=== PATIENT | male | born 1940 | race Caucasian/White ===

== ENCOUNTER 2021-11-08 05:54 | Day surgery (SDC) | payer MEDICARE, OTHER ==
[2021-11-06 10:40] LABS: BASOPHILS % (AUTO) 0.4 % (0-1); EOSINOPHILS # (AUTO) 0.2 X10'3 (0-0.9); EOSINOPHILS % (AUTO) 2.4 % (0-6); LYMPHOCYTES # (AUTO) 2.4 X10'3 (1.1-4.8); LYMPHOCYTES % (AUTO) 26.5 % (21-51); MEAN CORPUSCULAR HEMOGLOBIN 30.2 PG (27.0-31.0); MEAN CORPUSCULAR HGB CONC 33.9 g/dL (33.0-36.5); MEAN CORPUSCULAR VOLUME 89.3 FL (78-98); MEAN PLATELET VOLUME 7.6 FL (7.4-10.4); MONOCYTES # (AUTO) 0.8 X10'3 (0-0.9); MONOCYTES % (AUTO) 8.8 % (2-12); NEUTROPHILS # (AUTO) 5.5 X10'3 (1.8-7.7); NEUTROPHILS % (AUTO) 61.9 % (42-75); PRE OP HEMATOCRIT 45.9 % (42.0-52.0); PRE OP HEMOGLOBIN 15.6 g/dL (14.0-17.9); PRE OP PLATELET COUNT 241 X10'3 (140-440); RED BLOOD COUNT 5.15 X10'6 (4.70-6.10); RED CELL DISTRIBUTION WIDTH 13.7 % (11.5-14.5)
[2021-11-06 10:57] LABS: ALBUMIN/GLOBULIN RATIO 1.3 (1.1-1.5); ALKALINE PHOSPHATASE 87 IU/L (46-116); BLOOD UREA NITROGEN 32 MG/DL (7-18); BUN/CREATININE RATIO 34.4 (5.4-32.0); CALCIUM 8.5 MG/DL (8.5-10.1); CHLORIDE 106 MMOL/L (99-107); CREATININE 0.93 MG/DL (0.60-1.10); PRE OP ALT 24 U/L (30-65); PRE OP ANION GAP 9 (8-16); PRE OP AST 15 U/L (10-37); PRE OP BILIRUB, TOTAL 0.8 MG/DL (0.0-1.0); PRE OP GLUCOSE 96 MG/DL (70-104); PRE OP POTASSIUM 4.6 MMOL/L (3.4-5.1); PRE OP SODIUM 141 MMOL/L (135-145); TOTAL CARBON DIOXIDE 26.2 MMOL/L (24-32); TOTAL PROTEIN 7.2 G/DL (6.4-8.2); eGFR 78 ML/MIN
[~2021-11-08] VITALS: Ht 165.1 cm; Wt 78.7 kg
[~2021-11-08 05:54] MED LIST: ATOR20TA PO; METO-539 PO; NAPR-56 PO; ZES10T PO; cefazolin/dext.iso 2gm/50ml IV ONE; famotidine 20mg tablet PO ONE; ringers solution, lacted 1,000 ML IV SCH
[2021-11-08] MEDS ORDERED: BUPIVAcaine 0.5% inj/PF 30 ML ONE (06:27)
[2021-11-08 07:15] VITALS: BP 157/50
[2021-11-08] MEDS ORDERED: LIDOcaine 0.5% (5mg/ml) 50ml vial ONE (07:22)
[2021-11-08] MEDS ORDERED: LIDOcaine 1% 30ml preserv. free vial ONE (07:25)
[2021-11-08] MEDS ORDERED: midazolam 1 mg/ML 2ml injection ONE (07:52)
[2021-11-08] MEDS ORDERED: FENTANYL CITRATE/PF 50 MCG/1 ML VIAL ONE ×2 (07:52→08:30)
[2021-11-08] MEDS ORDERED: hydrALAZINE 20mg/ml inj. IV ONE (08:41)
[2021-11-08] MEDS ORDERED: ketorolac trometh. 30mg/ml inj. ONE (08:41)
[2021-11-08] MEDS ORDERED: propofol inj 20 ML IV ONE (08:42)
[2021-11-08 08:44] VITALS: BP 120/63
--- NOTE | 2021-11-08 08:44 | NUR ---
Received from OR via , accompanied by Anesthesiologist DR DALEY and report given by Anesthesiolgist. AWAKENS TO VOICE. VITALS STABLE. DRESSING DI. NALLELY PAIN. FINGERS WARM AND PINK.
[2021-11-08 08:54] VITALS: BP 124/69
[2021-11-08 09:04] VITALS: BP 140/62
[2021-11-08 09:14] VITALS: BP 122/59
--- NOTE | 2021-11-08 09:34 | NUR ---
AWAKE AND ORIENTED. VITALS STABLE. DRESSING DI. NALLELY PAIN. HOME WITH HIS SON AT THIS TIME.
== END 2021-11-08 09:34 | disposition home or self-care (01) ==
LOC: PAS 05:54
PROVIDERS: ATTEND Orthopaedic Surgery Hand Surgery
DX: M72.0 Palmar fascial fibromatosis [Dupuytren] (principal); G56.01 Carpal tunnel syndrome, right upper limb; I25.10 Atherosclerotic heart disease of native coronary artery without angina pectoris; I10 Essential (primary) hypertension; Z20.822 Contact with and (suspected) exposure to COVID-19; Z79.899 Other long term (current) drug therapy; Z72.89 Other problems related to lifestyle; Z95.1 Presence of aortocoronary bypass graft; Z90.49 Acquired absence of other specified parts of digestive tract
CPT/HCPCS: 26040; 36415; 64721; 71046; 80053; 82948; 85025; 87635; 93005; C9803; J0360; J1885; J2250; J2704; J3010; J3490; J7030; J7120; S0020; Z7506; Z7512; A4215; A6449

== ENCOUNTER 2022-06-17 13:01 | Day surgery (SDC) | payer MEDICARE, OTHER ==
[2022-06-16 09:47] LABS: APTT 27 SECONDS (22-32)
[2022-06-16 10:05] LABS: ANION GAP 7 (8-16); BLOOD UREA NITROGEN 25 MG/DL (7-18); BUN/CREATININE RATIO 21.2 (5.4-32.0); CHLORIDE 103 MMOL/L (99-107); CHOLESTEROL 190 MG/DL (0-200); CREATININE 1.18 MG/DL (0.60-1.10); GLUCOSE 140 MG/DL (70-104); HDL CHOLESTEROL 48 MG/DL (35-60); LDL CHOLESTEROL 111 MG/DL (50-100); POTASSIUM 4.6 MMOL/L (3.5-5.1); SODIUM 138 MMOL/L (135-145); TOTAL CARBON DIOXIDE 27.7 MMOL/L (24-32); TRIGLYCERIDES 179 MG/DL (20-135); eGFR 59 ML/MIN
[~2022-06-17] VITALS: Ht 167.6 cm; Wt 76.7 kg
[2022-06-17] VITALS (10 sets, daily range): BP systolic 132–197; BP diastolic 70–95
[~2022-06-17 13:01] MED LIST changes: -cefazolin/dext.iso 2gm/50ml IV ONE; -famotidine 20mg tablet PO ONE; -ringers solution, lacted 1,000 ML IV SCH
[2022-06-17] MEDS ORDERED: LORazepam 0.5 MG tablet PO PRN (13:45)
[2022-06-17] MEDS ORDERED: normal saline 1,000 ML IV SCH (13:45)
[2022-06-17] MEDS ORDERED: diphenhydrAMINE 25mg capsule PO PRN (13:45)
[2022-06-17] MEDS ORDERED: ASPI-107 PO (14:12)
[2022-06-17] MEDS ORDERED: iohexol 350MG/ML 100ml bottle IV ONE (16:09)
[2022-06-17] MEDS ORDERED: LIDOcaine 1% 30ml preserv. free vial ONE (16:09)
[2022-06-17] MEDS ORDERED: fentaNYL/PF 50MCG/1 ML 2ML syringe ONE (16:09)
[2022-06-17] MEDS ORDERED: midazolam 1 mg/ML 2ml injection ONE ×2 (16:09→16:58)
[2022-06-17] MEDS ORDERED: heparin 1,000unit/ml 10ml vial 10 ML ONE (16:58)
[2022-06-17] MEDS ORDERED: clopidogrel 300mg tablet ONE (16:58)
[2022-06-17] MEDS ORDERED: aspirin 325mg tablet ONE (17:04)
--- NOTE | 2022-06-17 17:52 | NUR ---
Bedside report received from RODNEY Watts s/p left heart cath with PCI. Vital signs stable. NSR on monitor. Patient denies chest pain. Right groin site stable with dressing CDI.
== END 2022-06-17 21:30 | disposition home or self-care (01) ==
LOC: SSTAY O 13:01
PROVIDERS: ATTEND Student in an Organized Health Care Education/Training Program
DX: R94.39 Abnormal result of other cardiovascular function study (principal); I25.10 Atherosclerotic heart disease of native coronary artery without angina pectoris; I25.810 Atherosclerosis of coronary artery bypass graft(s) without angina pectoris; I10 Essential (primary) hypertension; E78.5 Hyperlipidemia, unspecified; I25.82 Chronic total occlusion of coronary artery; Z79.01 Long term (current) use of anticoagulants; Z79.899 Other long term (current) drug therapy; Z79.82 Long term (current) use of aspirin
CPT/HCPCS: 36415; 80048; 80061; 85610; 85730; 93005; 93459; 99152; 99153; C1725; C1751; C1760; C1769; C1874; C1894; C9604; J1644; J2250; J3010; J3490; J7030; Q0163; Q9967; A4620; A6258